=== PATIENT | male | born 1930 | race African-American/Black ===

== ENCOUNTER 2018-11-15 23:52 | Inpatient (IN) | payer MEDICARE ==
[~2018-11-15] VITALS: Ht 170.2 cm; Wt 66.7 kg
[2018-11-16 07:05] LABS: *COCAINE SCREEN URINE NEGATIVE (NEGATIVE); METHADONE URINE SCREEN NEGATIVE (NEGATIVE); OPIATES URINE SCREEN NEGATIVE (NEGATIVE)
[2018-11-16 07:06] LABS: *AMPHETAMINES SCREEN URINE NEGATIVE (NEGATIVE); *BARBITURATES SCREEN URINE NEGATIVE (NEGATIVE); *BENZODIAZEPINES SCREEN URINE NEGATIVE (NEGATIVE); CANNABINOID URINE SCREEN NEGATIVE (NEGATIVE); PHENCYCLIDINE URINE SCREEN NEGATIVE (NEGATIVE)
[2018-11-16 07:07] LABS: BASOPHILS % 0.5 % (0.0-2.0); EOSINOPHILS % 0.4 % (0.0-5.0); HEMOGLOBIN. 11.4 g/dL (14.0-18.0); LYMPHOCYTES % 11.6 % (20.0-50.0); MEAN CORPUSCULAR HEMOGLOBIN 31.4 pg (28.0-32.0); MEAN CORPUSCULAR VOLUME 93.8 fL (80.0-94.0); MEAN PLATELET VOLUME 9.3 fl (7.4-10.4); MONOCYTES % 6.1 % (2.0-8.0); NEUTROPHILS % 81.4 % (40.0-76.0); PLATELET 202 x1000/uL (130-400); RED BLOOD CELL COUNT 3.63 mill/uL (4.7-6.1); RED CELL DISTRIBUTION WIDTH 14.6 % (11.6-14.6)
[2018-11-16 07:16] LABS: CHLORIDE 111 mEq/L (98-107)
[2018-11-16] MEDS ORDERED: ASPIRIN 81MG TABLET PO ONE (09:30)
[2018-11-16] MEDS ORDERED: ONDANSETRON HCL 4MG/2ML INJ IV PRN (10:15)
[2018-11-16] MEDS ORDERED: GUAIFENESIN 200MG/10ML SUGAR FREE UDC PO PRN (10:15)
[2018-11-16] MEDS ORDERED: MAGNESIUM/ALUMINUM HYDROXIDE/SIMETHICONE 30ML UDC PO PRN (10:15)
[2018-11-16] MEDS ORDERED: ACETAMINOPHEN 325MG TABLET PO PRN (10:15)
[2018-11-16] MEDS ORDERED: IPRATROPIUM/ALBUTEROL 0.5-3(2.5)MG/3ML NEB INH PRN (10:15)
[2018-11-16] MEDS ORDERED: DOCUSATE SODIUM 100MG CAPSULE PO PRN (10:15)
[2018-11-16] MEDS ORDERED: NITROGLYCERIN 0.4MG TABLET SL SL PRN (10:15)
[2018-11-16 10:41] LABS: T4 FREE 0.84 ng/dL (0.76-1.46)
[2018-11-16 10:44] LABS: CLARITY URINE CLOUDY (CLEAR); KETONES URINE TRACE (NEGATIVE); LEUKOCYTE ESTERASE URINE NEGATIVE (NEGATIVE); NITRITE URINE NEGATIVE (NEGATIVE); OCCULT BLOOD URINE 3+ (NEGATIVE); PROTEIN URINE 2+ (NEGATIVE); SPECIFIC GRAVITY URINE 1.023 (1.005-1.030)
[2018-11-16 10:45] LABS: COLOR URINE YELLOW (YELLOW)
[2018-11-16 10:52] LABS: FOLIC ACID (FOLATE) SERUM 10.2 ng/mL (>5.38)
[2018-11-16 15:46] LABS: CREATINE KINASE MB FRACTION 52.9 ng/mL (0.5-3.6)
[2018-11-16] MEDS: FAMOTIDINE 20MG TABLET PO SCH (16:12)
[2018-11-16] MEDS: ENOXAPARIN 30MG/0.3ML SYR SUBCUT SCH (16:12)
[2018-11-16] MEDS ORDERED: TRAMADOL 50MG TABLET PO PRN (17:30)
[2018-11-16] MEDS ORDERED: ZOLPIDEM TARTRATE 5MG TABLET PO PRN (21:00)
[2018-11-16 22:53] VITALS: BP 163/64
[2018-11-16 22:58] VITALS: BP 163/64
[2018-11-17 00:03] LABS: CREATINE KINASE MB FRACTION 26.5 ng/mL (0.5-3.6)
[2018-11-17 00:50] VITALS: BP 147/62
[2018-11-17 04:00] VITALS: BP 153/74
[2018-11-17 06:53] LABS: BASOPHILS % 1.6 % (0.0-2.0); HEMATOCRIT. 33.3 % (42.0-52.0); HEMOGLOBIN. 11.4 g/dL (14.0-18.0); LYMPHOCYTES % 31.4 % (20.0-50.0); MEAN CORPUSCULAR HEMOGLOBIN 31.6 pg (28.0-32.0); MEAN CORPUSCULAR VOLUME 92.6 fL (80.0-94.0); MEAN PLATELET VOLUME 9.2 fl (7.4-10.4); MONOCYTES % 7.3 % (2.0-8.0); NEUTROPHILS % 55.7 % (40.0-76.0); PLATELET 186 x1000/uL (130-400); RED BLOOD CELL COUNT 3.59 mill/uL (4.7-6.1); RED CELL DISTRIBUTION WIDTH 14.6 % (11.6-14.6)
[2018-11-17] MEDS: SODIUM CHLORIDE 0.9% 1,000 ML IV SCH (07:32)
[2018-11-17 08:00] VITALS: BP 142/68
[2018-11-17 08:04] LABS: CHLORIDE 112 mEq/L (98-107)
[2018-11-17] MEDS: FAMOTIDINE 20MG TABLET PO SCH (08:59)
[2018-11-17] MEDS: ASPIRIN 325MG EC TABLET PO SCH (09:00)
[2018-11-17 12:00] VITALS: BP 139/50
[2018-11-17 15:35] LABS: CREATINE KINASE MB FRACTION 11.4 ng/mL (0.5-3.6)
[2018-11-17 16:00] VITALS: BP 149/62
[2018-11-17] MEDS: ENOXAPARIN 30MG/0.3ML SYR SUBCUT SCH (16:00)
[2018-11-17 20:00] VITALS: BP 154/66
[2018-11-18] VITALS: BP 154/66
[2018-11-18 04:00] VITALS: BP 144/73
[2018-11-18] MEDS: SODIUM CHLORIDE 0.9% 1,000 ML IV SCH ×2 (04:52→15:11)
[2018-11-18 08:00] VITALS: BP 160/84
[2018-11-18] MEDS: FAMOTIDINE 20MG TABLET PO SCH (09:19)
[2018-11-18] MEDS: CLONIDINE 0.1MG TABLET PO PRN ×2 (09:20→16:58)
[2018-11-18] MEDS: ASPIRIN 325MG EC TABLET PO SCH (09:20)
[2018-11-18 12:00] VITALS: BP 147/58
[2018-11-18] MEDS: ENOXAPARIN 30MG/0.3ML SYR SUBCUT SCH (15:10)
[2018-11-18 16:00] VITALS: BP 170/69
[2018-11-18] MEDS: FUROSEMIDE 20MG TABLET PO SCH (16:59)
[2018-11-18] MEDS: SPIRONOLACTONE 25MG TABLET PO SCH (16:59)
[2018-11-18 20:00] VITALS: BP 153/70
[2018-11-18] MEDS: CARVEDILOL 3.125 MG TABLET PO SCH (22:41)
[2018-11-18] MEDS: LISINOPRIL 20MG TABLET PO SCH (22:42)
[2018-11-19] MEDS: SODIUM CHLORIDE 0.9% 1,000 ML IV SCH ×3 (02:08→17:12)
[2018-11-19 04:00] VITALS: BP 174/70
[2018-11-19] MEDS: FUROSEMIDE 20MG TABLET PO SCH ×2 (06:22→17:09)
[2018-11-19] MEDS: SPIRONOLACTONE 25MG TABLET PO SCH ×2 (06:23→17:10)
[2018-11-19 08:00] VITALS: BP 179/91
[2018-11-19] MEDS: ASPIRIN 325MG EC TABLET PO SCH (09:17)
[2018-11-19] MEDS: FAMOTIDINE 20MG TABLET PO SCH (09:17)
[2018-11-19] MEDS: LISINOPRIL 20MG TABLET PO SCH ×2 (09:18→21:46)
[2018-11-19] MEDS: CARVEDILOL 3.125 MG TABLET PO SCH ×2 (09:18→21:46)
[2018-11-19 12:00] VITALS: BP 153/58
[2018-11-19] MEDS: ENOXAPARIN 30MG/0.3ML SYR SUBCUT SCH (14:43)
[2018-11-19 16:00] VITALS: BP 157/66
[2018-11-19 20:00] VITALS: BP 176/79
[2018-11-20] VITALS (7 sets, daily range): BP systolic 131–182; BP diastolic 54–83
[2018-11-20] MEDS: SODIUM CHLORIDE 0.9% 1,000 ML IV SCH ×2 (02:56→14:46)
[2018-11-20] MEDS: FUROSEMIDE 20MG TABLET PO SCH ×2 (06:50→17:15)
[2018-11-20] MEDS: SPIRONOLACTONE 25MG TABLET PO SCH ×2 (06:51→17:56)
[2018-11-20] MEDS: ASPIRIN 325MG EC TABLET PO SCH (09:29)
[2018-11-20] MEDS: FAMOTIDINE 20MG TABLET PO SCH (09:30)
[2018-11-20] MEDS: CARVEDILOL 3.125 MG TABLET PO SCH ×2 (09:30→20:18)
[2018-11-20] MEDS: LISINOPRIL 20MG TABLET PO SCH ×2 (09:30→20:18)
[2018-11-20] MEDS: ENOXAPARIN 30MG/0.3ML SYR SUBCUT SCH (14:46)
== END 2018-11-20 21:52 | disposition short-term general hospital (02) | DRG 683 ==
LOC: ER 23:52 → 5WST 11-16 08:14 → UNDOADMIN 11-16 08:18 → 5WST 11-16 08:18 → SUPCPDRO 11-16 10:15 → ENRESERV 11-16 20:23
PROVIDERS: ADMIT Internal Medicine; ATTEND Internal Medicine
DX: N17.0 Acute kidney failure with tubular necrosis (principal); M62.82 Rhabdomyolysis; E87.0 Hyperosmolality and hypernatremia; R55 Syncope and collapse; I10 Essential (primary) hypertension; D64.9 Anemia, unspecified; R26.9 Unspecified abnormalities of gait and mobility; I08.2 Rheumatic disorders of both aortic and tricuspid valves; G54.6 Phantom limb syndrome with pain; H54.61 Unqualified visual loss, right eye, normal vision left eye; Z86.73 Personal history of transient ischemic attack (TIA), and cerebral infarction without residual deficits; Z89.512 Acquired absence of left leg below knee; Z89.612 Acquired absence of left leg above knee; Z97.0 Presence of artificial eye
CPT/HCPCS: 36415; 71045; 73030; 80061; 80305; 82550; 82553; 82607; 82746; 83036; 83540; 83550; 83605; 84439; 84443; 84484; 93005; 93306; 93970; 96372; 97116; 97162; 97166; 97530; 97535; 99284; 99285; J1650; J2405

== ENCOUNTER 2018-11-20 21:55 | Inpatient (IN) | payer MEDICARE, OTHER ==
[~2018-11-20] VITALS: Ht 170.2 cm; Wt 66.3 kg
[2018-11-20 22:00] VITALS: BP 126/63
[2018-11-20] MEDS ORDERED: CLONIDINE 0.1MG TABLET PO PRN (23:00)
[2018-11-20] MEDS ORDERED: ZOLPIDEM TARTRATE 5MG TABLET PO PRN (23:00)
[2018-11-20] MEDS ORDERED: ONDANSETRON HCL 4MG/2ML INJ IV PRN (23:00)
[2018-11-20] MEDS ORDERED: GUAIFENESIN-DM 200MG-20MG/10ML UDC PO PRN (23:00)
[2018-11-20] MEDS ORDERED: ACETAMINOPHEN 650MG/20.3ML UDC PO PRN (23:00)
[2018-11-20] MEDS ORDERED: TRAMADOL 50MG TABLET PO PRN (23:00)
[2018-11-20] MEDS ORDERED: NITROGLYCERIN 0.4MG TABLET SL SL PRN (23:00)
[2018-11-20] MEDS ORDERED: MAGNESIUM/ALUMINUM HYDROXIDE/SIMETHICONE 30ML UDC PO PRN (23:00)
[2018-11-20] MEDS ORDERED: DOCUSATE SODIUM 100MG CAPSULE PO PRN (23:00)
[2018-11-20] MEDS ORDERED: IPRATROPIUM/ALBUTEROL 0.5-3(2.5)MG/3ML NEB HHN PRN (23:00)
[2018-11-21 02:46] VITALS: BP 126/63
[2018-11-21] MEDS: SODIUM CHLORIDE 0.9% 1,000 ML IV SCH ×2 (06:47→23:51)
[2018-11-21 07:50] LABS: BASOPHILS % 1.6 % (0.0-2.0); EOSINOPHILS % 4.7 % (0.0-5.0); HEMATOCRIT. 34.4 % (42.0-52.0); HEMOGLOBIN. 11.8 g/dL (14.0-18.0); LYMPHOCYTES % 38.8 % (20.0-50.0); MEAN CORPUSCULAR HEMOGLOBIN 31.6 pg (28.0-32.0); MEAN PLATELET VOLUME 9.4 fl (7.4-10.4); MONOCYTES % 9.7 % (2.0-8.0); NEUTROPHILS % 45.2 % (40.0-76.0); PLATELET 200 x1000/uL (130-400); RED BLOOD CELL COUNT 3.74 mill/uL (4.7-6.1); RED CELL DISTRIBUTION WIDTH 14.3 % (11.6-14.6)
[2018-11-21 07:57] LABS: CHLORIDE 111 mEq/L (98-107)
[2018-11-21 08:45] VITALS: BP 145/76
[2018-11-21] MEDS ORDERED: ENOXAPARIN 30MG/0.3ML SYR SUBCUT SCH (09:00)
[2018-11-21] MEDS: SPIRONOLACTONE 25MG TABLET PO SCH ×2 (09:35→09:42)
[2018-11-21] MEDS: FAMOTIDINE 20MG TABLET PO SCH (09:35)
[2018-11-21] MEDS: ASPIRIN 325MG EC TABLET PO SCH (09:35)
[2018-11-21] MEDS: FUROSEMIDE 20MG TABLET PO SCH ×2 (09:36→09:42)
[2018-11-21] MEDS: LISINOPRIL 10MG TABLET PO SCH ×2 (09:36→21:32)
[2018-11-21] MEDS: CARVEDILOL 3.125 MG TABLET PO SCH ×2 (09:36→21:32)
[2018-11-21] MEDS ORDERED: LACTULOSE 20G/30ML UDC PO PRN (13:45)
[2018-11-21] MEDS: BISACODYL 5MG TABLET PO PRN (17:21)
[2018-11-21 20:00] VITALS: BP 197/77
[2018-11-21 21:00] VITALS: BP 180/68
[2018-11-21 23:00] VITALS: BP 155/67
[2018-11-22] MEDS: LEVOTHYROXINE SODIUM 25MCG TABLET PO SCH (06:18)
[2018-11-22 08:00] VITALS: BP 105/83
[2018-11-22] MEDS: FAMOTIDINE 20MG TABLET PO SCH (09:55)
[2018-11-22] MEDS: ASPIRIN 325MG EC TABLET PO SCH (09:55)
[2018-11-22] MEDS: CARVEDILOL 3.125 MG TABLET PO SCH ×2 (09:56→22:55)
[2018-11-22] MEDS: SPIRONOLACTONE 25MG TABLET PO SCH ×2 (09:56→21:19)
[2018-11-22] MEDS: FUROSEMIDE 20MG TABLET PO SCH ×2 (09:56→21:19)
[2018-11-22] MEDS: LISINOPRIL 10MG TABLET PO SCH ×2 (09:57→21:25)
[2018-11-22] MEDS: ENOXAPARIN 40MG/0.4ML SYR SUBCUT SCH (09:58)
[2018-11-22 20:00] VITALS: BP 165/57
[2018-11-22] MEDS: SODIUM CHLORIDE 0.9% 1,000 ML IV SCH (21:33)
[2018-11-23] MEDS: LEVOTHYROXINE SODIUM 25MCG TABLET PO SCH (06:15)
[2018-11-23 07:22] LABS: EOSINOPHILS % 3.7 % (0.0-5.0); HEMATOCRIT. 34.2 % (42.0-52.0); HEMOGLOBIN. 11.5 g/dL (14.0-18.0); LYMPHOCYTES % 39.1 % (20.0-50.0); MEAN CORPUSCULAR HEMOGLOBIN 31.1 pg (28.0-32.0); MEAN CORPUSCULAR VOLUME 92.7 fL (80.0-94.0); MEAN PLATELET VOLUME 9.5 fl (7.4-10.4); MONOCYTES % 9.2 % (2.0-8.0); PLATELET 205 x1000/uL (130-400); RED BLOOD CELL COUNT 3.69 mill/uL (4.7-6.1); RED CELL DISTRIBUTION WIDTH 14.4 % (11.6-14.6)
[2018-11-23 07:48] LABS: CHLORIDE 111 mEq/L (98-107)
[2018-11-23 08:00] VITALS: BP 102/66
[2018-11-23 08:01] LABS: TOTAL IRON BINDING CAPACITY 243 ug/dL (250-450)
[2018-11-23 08:09] LABS: FOLIC ACID (FOLATE) SERUM 12.8 ng/mL (>5.38)
[2018-11-23] MEDS: LISINOPRIL 10MG TABLET PO SCH ×2 (09:00→21:00)
[2018-11-23] MEDS: CARVEDILOL 3.125 MG TABLET PO SCH ×2 (09:00→21:00)
[2018-11-23 09:41] LABS: PROSTRATE SPECIFIC AG TOTAL 1.13 ng/mL (0.0-4.0)
[2018-11-23] MEDS: ASPIRIN 325MG EC TABLET PO SCH (09:59)
[2018-11-23] MEDS: FAMOTIDINE 20MG TABLET PO SCH ×2 (09:59→17:56)
[2018-11-23] MEDS: FUROSEMIDE 20MG TABLET PO SCH ×2 (10:00→21:59)
[2018-11-23] MEDS: SPIRONOLACTONE 25MG TABLET PO SCH ×2 (10:00→21:00)
[2018-11-23] MEDS: ENOXAPARIN 40MG/0.4ML SYR SUBCUT SCH (10:01)
[2018-11-23] MEDS: SODIUM CHLORIDE 0.9% 1,000 ML IV SCH ×2 (10:02→22:03)
[2018-11-23] MEDS ORDERED: MAGNESIUM/ALUMINUM HYDROXIDE/SIMETHICONE 30ML UDC PO NR (11:45)
[2018-11-23] MEDS ORDERED: POTASSIUM CHLORIDE 20MEQ TABLET SR PO NR (12:30)
[2018-11-23 13:42] LABS: CREATINE KINASE MB FRACTION 3.8 ng/mL (0.5-3.6)
[2018-11-23 20:00] VITALS: BP 110/71
[2018-11-24 06:19] LABS: CHLORIDE 110 mEq/L (98-107)
[2018-11-24] MEDS: LEVOTHYROXINE SODIUM 50MCG TABLET PO SCH (06:26)
[2018-11-24] MEDS: PANTOPRAZOLE 40MG DR TABLET PO SCH (06:26)
[2018-11-24] MEDS: SODIUM CHLORIDE 0.9% 1,000 ML IV SCH (06:41)
[2018-11-24 06:44] LABS: EOSINOPHILS % 3.8 % (0.0-5.0); HEMATOCRIT. 34.8 % (42.0-52.0); HEMOGLOBIN. 11.8 g/dL (14.0-18.0); LYMPHOCYTES % 38.5 % (20.0-50.0); MEAN CORPUSCULAR HEMOGLOBIN 31.5 pg (28.0-32.0); MEAN CORPUSCULAR VOLUME 92.7 fL (80.0-94.0); MEAN PLATELET VOLUME 9.4 fl (7.4-10.4); MONOCYTES % 10.1 % (2.0-8.0); NEUTROPHILS % 45.6 % (40.0-76.0); PLATELET 225 x1000/uL (130-400); RED BLOOD CELL COUNT 3.75 mill/uL (4.7-6.1); RED CELL DISTRIBUTION WIDTH 14.3 % (11.6-14.6)
[2018-11-24 08:00] VITALS: BP 103/67
[2018-11-24] MEDS: FAMOTIDINE 20MG TABLET PO SCH (09:37)
[2018-11-24] MEDS: LISINOPRIL 10MG TABLET PO SCH ×2 (09:37→21:00)
[2018-11-24] MEDS: ASPIRIN 325MG EC TABLET PO SCH (09:37)
[2018-11-24] MEDS: CARVEDILOL 3.125 MG TABLET PO SCH ×2 (09:38→21:38)
[2018-11-24] MEDS: SPIRONOLACTONE 25MG TABLET PO SCH ×2 (09:38→21:38)
[2018-11-24] MEDS: FUROSEMIDE 20MG TABLET PO SCH ×2 (09:38→21:38)
[2018-11-24] MEDS: ENOXAPARIN 40MG/0.4ML SYR SUBCUT SCH (09:38)
[2018-11-24] MEDS ORDERED: ONDANSETRON 4MG ODT PO PRN (11:00)
[2018-11-24 20:00] VITALS: BP 189/61
[2018-11-25] MEDS: PANTOPRAZOLE 40MG DR TABLET PO SCH (06:43)
[2018-11-25] MEDS: LEVOTHYROXINE SODIUM 50MCG TABLET PO SCH (06:43)
[2018-11-25 08:05] VITALS: BP 115/75
[2018-11-25] MEDS: FUROSEMIDE 20MG TABLET PO SCH ×2 (09:42→22:16)
[2018-11-25] MEDS: ASPIRIN 325MG EC TABLET PO SCH (09:42)
[2018-11-25] MEDS: LISINOPRIL 10MG TABLET PO SCH ×2 (09:42→21:00)
[2018-11-25] MEDS: SPIRONOLACTONE 25MG TABLET PO SCH ×2 (09:42→22:17)
[2018-11-25] MEDS: CARVEDILOL 3.125 MG TABLET PO SCH ×2 (09:43→21:00)
[2018-11-25] MEDS: ENOXAPARIN 40MG/0.4ML SYR SUBCUT SCH (09:43)
[2018-11-25] MEDS ORDERED: PANTOPRAZOLE 40MG DR TABLET PO SCH (14:30)
[2018-11-25 20:00] VITALS: BP 122/59
[2018-11-26] MEDS: PANTOPRAZOLE 40MG DR TABLET PO SCH (06:11)
[2018-11-26] MEDS: LEVOTHYROXINE SODIUM 50MCG TABLET PO SCH (06:11)
[2018-11-26 07:00] LABS: BASOPHILS % 1.5 % (0.0-2.0); EOSINOPHILS % 4.3 % (0.0-5.0); HEMATOCRIT. 37.2 % (42.0-52.0); HEMOGLOBIN. 12.5 g/dL (14.0-18.0); MEAN CORPUSCULAR HEMOGLOBIN 31.2 pg (28.0-32.0); MEAN CORPUSCULAR VOLUME 92.7 fL (80.0-94.0); MONOCYTES % 9.1 % (2.0-8.0); NEUTROPHILS % 48.1 % (40.0-76.0); PLATELET 260 x1000/uL (130-400); RED BLOOD CELL COUNT 4.01 mill/uL (4.7-6.1); RED CELL DISTRIBUTION WIDTH 14.5 % (11.6-14.6)
[2018-11-26 07:47] LABS: CHLORIDE 107 mEq/L (98-107)
[2018-11-26 07:53] VITALS: BP 150/68
[2018-11-26 08:10] LABS: CREATINE KINASE 601 IU/L (39-308)
[2018-11-26] MEDS: ENOXAPARIN 40MG/0.4ML SYR SUBCUT SCH (10:20)
[2018-11-26] MEDS: FUROSEMIDE 20MG TABLET PO SCH ×2 (10:20→22:15)
[2018-11-26] MEDS: CARVEDILOL 3.125 MG TABLET PO SCH ×2 (10:22→22:14)
[2018-11-26] MEDS: BISACODYL 5MG TABLET PO PRN (10:22)
[2018-11-26] MEDS: ASPIRIN 325MG EC TABLET PO SCH (10:23)
[2018-11-26] MEDS: SPIRONOLACTONE 25MG TABLET PO SCH ×2 (10:23→22:14)
[2018-11-26] MEDS: LISINOPRIL 10MG TABLET PO SCH ×2 (10:23→21:00)
[2018-11-26] MEDS: LACTULOSE 20G/30ML UDC PO SCH ×3 (16:49→21:00)
[2018-11-26] MEDS: DOCUSATE SODIUM 100MG CAPSULE PO SCH (16:49)
[2018-11-26 20:00] VITALS: BP 141/64
[2018-11-26] MEDS: POLYETHYLENE GLYCOL 3350 (17GM) 1 DOSE PACK PO SCH (21:00)
[2018-11-27] MEDS: PANTOPRAZOLE 40MG DR TABLET PO SCH (06:12)
[2018-11-27] MEDS: LEVOTHYROXINE SODIUM 50MCG TABLET PO SCH (06:12)
[2018-11-27 08:10] VITALS: BP 130/60
[2018-11-27] MEDS: CARVEDILOL 3.125 MG TABLET PO SCH ×2 (09:19→21:28)
[2018-11-27] MEDS: ASPIRIN 325MG EC TABLET PO SCH (09:20)
[2018-11-27] MEDS: LISINOPRIL 10MG TABLET PO SCH ×2 (09:20→21:27)
[2018-11-27] MEDS: DOCUSATE SODIUM 100MG CAPSULE PO SCH ×2 (09:20→17:00)
[2018-11-27] MEDS: FUROSEMIDE 20MG TABLET PO SCH ×2 (09:20→21:27)
[2018-11-27] MEDS: SPIRONOLACTONE 25MG TABLET PO SCH ×2 (09:20→21:27)
[2018-11-27] MEDS: ENOXAPARIN 40MG/0.4ML SYR SUBCUT SCH (09:21)
[2018-11-27 15:07] LABS: 25-HYDROXY VITAMIN D3 14 ng/mL (.)
[2018-11-27 20:00] VITALS: BP 131/52
[2018-11-27] MEDS: POLYETHYLENE GLYCOL 3350 (17GM) 1 DOSE PACK PO SCH (21:28)
[2018-11-28 06:05] LABS: BASOPHILS % 1.5 % (0.0-2.0); EOSINOPHILS % 2.9 % (0.0-5.0); HEMATOCRIT. 34.9 % (42.0-52.0); HEMOGLOBIN. 11.7 g/dL (14.0-18.0); LYMPHOCYTES % 37.8 % (20.0-50.0); MEAN CORPUSCULAR HEMOGLOBIN 31.1 pg (28.0-32.0); MEAN CORPUSCULAR VOLUME 93.2 fL (80.0-94.0); MEAN PLATELET VOLUME 9.1 fl (7.4-10.4); MONOCYTES % 8.8 % (2.0-8.0); PLATELET 255 x1000/uL (130-400); RED BLOOD CELL COUNT 3.75 mill/uL (4.7-6.1); RED CELL DISTRIBUTION WIDTH 14.6 % (11.6-14.6)
[2018-11-28] MEDS: LEVOTHYROXINE SODIUM 50MCG TABLET PO SCH (06:21)
[2018-11-28 06:43] LABS: CHLORIDE 107 mEq/L (98-107)
[2018-11-28 06:51] LABS: CREATINE KINASE 493 IU/L (39-308)
[2018-11-28 08:12] VITALS: BP 135/47
[2018-11-28] MEDS: ASPIRIN 325MG EC TABLET PO SCH (08:29)
[2018-11-28] MEDS: SPIRONOLACTONE 25MG TABLET PO SCH ×2 (08:30→21:45)
[2018-11-28] MEDS: CARVEDILOL 3.125 MG TABLET PO SCH ×2 (08:30→21:44)
[2018-11-28] MEDS: FAMOTIDINE 20MG TABLET PO SCH (08:30)
[2018-11-28] MEDS: DOCUSATE SODIUM 100MG CAPSULE PO SCH ×2 (08:30→16:04)
[2018-11-28] MEDS: ENOXAPARIN 40MG/0.4ML SYR SUBCUT SCH (08:31)
[2018-11-28] MEDS: FUROSEMIDE 20MG TABLET PO SCH ×2 (08:31→21:46)
[2018-11-28] MEDS: LISINOPRIL 10MG TABLET PO SCH ×2 (08:31→21:45)
[2018-11-28 20:00] VITALS: BP 129/42
[2018-11-28] MEDS: POLYETHYLENE GLYCOL 3350 (17GM) 1 DOSE PACK PO SCH (21:46)
[2018-11-29] MEDS: LEVOTHYROXINE SODIUM 50MCG TABLET PO SCH (06:17)
[2018-11-29 08:03] VITALS: BP 142/54
[2018-11-29] MEDS: DOCUSATE SODIUM 100MG CAPSULE PO SCH ×2 (08:06→17:02)
[2018-11-29] MEDS: ASPIRIN 325MG EC TABLET PO SCH (08:06)
[2018-11-29] MEDS: ENOXAPARIN 30MG/0.3ML SYR SUBCUT SCH (08:06)
[2018-11-29] MEDS: LISINOPRIL 10MG TABLET PO SCH ×2 (08:06→21:20)
[2018-11-29] MEDS: FUROSEMIDE 20MG TABLET PO SCH ×2 (08:07→21:20)
[2018-11-29] MEDS: SPIRONOLACTONE 25MG TABLET PO SCH ×2 (08:07→21:20)
[2018-11-29] MEDS: CARVEDILOL 3.125 MG TABLET PO SCH ×2 (08:08→21:20)
[2018-11-29] MEDS: FAMOTIDINE 20MG TABLET PO SCH (08:11)
[2018-11-29 20:00] VITALS: BP 155/55
[2018-11-29] MEDS: POLYETHYLENE GLYCOL 3350 (17GM) 1 DOSE PACK PO SCH (21:19)
[2018-11-30] MEDS: LEVOTHYROXINE SODIUM 50MCG TABLET PO SCH (06:17)
[2018-11-30 08:25] VITALS: BP 131/42
[2018-11-30] MEDS: LISINOPRIL 10MG TABLET PO SCH ×2 (08:55→21:35)
[2018-11-30] MEDS: ASPIRIN 325MG EC TABLET PO SCH (08:55)
[2018-11-30] MEDS: FUROSEMIDE 20MG TABLET PO SCH ×2 (08:55→21:35)
[2018-11-30] MEDS: FAMOTIDINE 20MG TABLET PO SCH (08:56)
[2018-11-30] MEDS: SPIRONOLACTONE 25MG TABLET PO SCH ×2 (08:56→21:35)
[2018-11-30] MEDS: CARVEDILOL 3.125 MG TABLET PO SCH ×2 (08:56→21:35)
[2018-11-30] MEDS: DOCUSATE SODIUM 100MG CAPSULE PO SCH ×2 (08:56→17:11)
[2018-11-30] MEDS: ENOXAPARIN 30MG/0.3ML SYR SUBCUT SCH (08:57)
[2018-11-30 20:00] VITALS: BP 98/51
[2018-11-30] MEDS: POLYETHYLENE GLYCOL 3350 (17GM) 1 DOSE PACK PO SCH (21:35)
[2018-12-01] MEDS: LEVOTHYROXINE SODIUM 50MCG TABLET PO SCH (06:00)
[2018-12-01 06:49] LABS: CHLORIDE 107 mEq/L (98-107)
[2018-12-01 06:59] LABS: CREATINE KINASE 535 IU/L (39-308)
[2018-12-01 07:05] LABS: BASOPHILS % 1.2 % (0.0-2.0); EOSINOPHILS % 2.5 % (0.0-5.0); HEMATOCRIT. 37.1 % (42.0-52.0); HEMOGLOBIN. 12.5 g/dL (14.0-18.0); LYMPHOCYTES % 40.8 % (20.0-50.0); MEAN CORPUSCULAR HEMOGLOBIN 31.2 pg (28.0-32.0); MEAN CORPUSCULAR VOLUME 92.7 fL (80.0-94.0); MEAN PLATELET VOLUME 9.7 fl (7.4-10.4); MONOCYTES % 9.1 % (2.0-8.0); NEUTROPHILS % 46.4 % (40.0-76.0); PLATELET 278 x1000/uL (130-400); RED CELL DISTRIBUTION WIDTH 14.1 % (11.6-14.6)
[2018-12-01 08:00] VITALS: BP 101/62
[2018-12-01] MEDS: LISINOPRIL 10MG TABLET PO SCH (09:00)
[2018-12-01] MEDS: CARVEDILOL 3.125 MG TABLET PO SCH ×2 (09:00→21:19)
[2018-12-01] MEDS: ENOXAPARIN 30MG/0.3ML SYR SUBCUT SCH (09:14)
[2018-12-01] MEDS: ASPIRIN 325MG EC TABLET PO SCH (09:14)
[2018-12-01] MEDS: DOCUSATE SODIUM 100MG CAPSULE PO SCH ×2 (09:14→16:39)
[2018-12-01] MEDS: SPIRONOLACTONE 25MG TABLET PO SCH (09:14)
[2018-12-01] MEDS: FUROSEMIDE 20MG TABLET PO SCH (09:14)
[2018-12-01] MEDS: FAMOTIDINE 20MG TABLET PO SCH (09:14)
[2018-12-01 20:00] VITALS: BP 152/61
[2018-12-01] MEDS: POLYETHYLENE GLYCOL 3350 (17GM) 1 DOSE PACK PO SCH (21:18)
[2018-12-02] MEDS: LEVOTHYROXINE SODIUM 50MCG TABLET PO SCH (07:15)
[2018-12-02 07:18] LABS: BASOPHILS % 1.8 % (0.0-2.0); EOSINOPHILS % 2.5 % (0.0-5.0); HEMOGLOBIN. 12.1 g/dL (14.0-18.0); LYMPHOCYTES % 38.9 % (20.0-50.0); MEAN CORPUSCULAR HEMOGLOBIN 31.3 pg (28.0-32.0); MEAN CORPUSCULAR VOLUME 93.2 fL (80.0-94.0); MEAN PLATELET VOLUME 9.3 fl (7.4-10.4); MONOCYTES % 9.7 % (2.0-8.0); NEUTROPHILS % 47.1 % (40.0-76.0); PLATELET 280 x1000/uL (130-400); RED BLOOD CELL COUNT 3.86 mill/uL (4.7-6.1); RED CELL DISTRIBUTION WIDTH 14.4 % (11.6-14.6)
[2018-12-02 08:00] VITALS: BP 143/44
[2018-12-02] MEDS ORDERED: SPIRONOLACTONE 25MG TABLET PO SCH (09:00)
[2018-12-02] MEDS ORDERED: LISINOPRIL 10MG TABLET PO SCH (09:00)
[2018-12-02] MEDS: DOCUSATE SODIUM 100MG CAPSULE PO SCH ×2 (09:22→16:10)
[2018-12-02] MEDS: ASPIRIN 325MG EC TABLET PO SCH (09:22)
[2018-12-02] MEDS: FAMOTIDINE 20MG TABLET PO SCH (09:22)
[2018-12-02] MEDS: ENOXAPARIN 30MG/0.3ML SYR SUBCUT SCH (09:22)
[2018-12-02] MEDS: CARVEDILOL 3.125 MG TABLET PO SCH ×2 (09:24→20:56)
[2018-12-02] MEDS: SODIUM CHLORIDE 0.45% 1,000 ML IV SCH (11:25)
[2018-12-02 20:00] VITALS: BP 139/37
[2018-12-02] MEDS: POLYETHYLENE GLYCOL 3350 (17GM) 1 DOSE PACK PO SCH (20:55)
[2018-12-03] MEDS: LEVOTHYROXINE SODIUM 50MCG TABLET PO SCH (06:38)
[2018-12-03] MEDS: SODIUM CHLORIDE 0.45% 1,000 ML IV SCH (06:38)
[2018-12-03 06:42] LABS: EOSINOPHILS % 2.5 % (0.0-5.0); HEMATOCRIT. 36.4 % (42.0-52.0); HEMOGLOBIN. 12.2 g/dL (14.0-18.0); LYMPHOCYTES % 43.5 % (20.0-50.0); MEAN CORPUSCULAR HEMOGLOBIN 31.2 pg (28.0-32.0); MEAN CORPUSCULAR VOLUME 93.1 fL (80.0-94.0); MEAN PLATELET VOLUME 9.2 fl (7.4-10.4); MONOCYTES % 8.8 % (2.0-8.0); NEUTROPHILS % 43.2 % (40.0-76.0); PLATELET 294 x1000/uL (130-400); RED BLOOD CELL COUNT 3.92 mill/uL (4.7-6.1); RED CELL DISTRIBUTION WIDTH 14.6 % (11.6-14.6)
[2018-12-03 08:08] VITALS: BP 149/51
[2018-12-03] MEDS: ENOXAPARIN 30MG/0.3ML SYR SUBCUT SCH (09:18)
[2018-12-03] MEDS: FAMOTIDINE 20MG TABLET PO SCH (09:18)
[2018-12-03] MEDS: CARVEDILOL 3.125 MG TABLET PO SCH ×2 (09:18→21:23)
[2018-12-03] MEDS: DOCUSATE SODIUM 100MG CAPSULE PO SCH ×2 (09:18→17:14)
[2018-12-03] MEDS: ASPIRIN 325MG EC TABLET PO SCH (09:18)
[2018-12-03 20:00] VITALS: BP 147/42
[2018-12-03] MEDS: POLYETHYLENE GLYCOL 3350 (17GM) 1 DOSE PACK PO SCH (21:23)
[2018-12-04] MEDS: LEVOTHYROXINE SODIUM 50MCG TABLET PO SCH (06:46)
[2018-12-04 07:35] LABS: BASOPHILS % 2.5 % (0.0-2.0); EOSINOPHILS % 2.7 % (0.0-5.0); HEMATOCRIT. 34.8 % (42.0-52.0); HEMOGLOBIN. 11.6 g/dL (14.0-18.0); MEAN CORPUSCULAR HEMOGLOBIN 31.3 pg (28.0-32.0); MEAN CORPUSCULAR VOLUME 93.7 fL (80.0-94.0); MEAN PLATELET VOLUME 9.6 fl (7.4-10.4); NEUTROPHILS % 42.8 % (40.0-76.0); PLATELET 255 x1000/uL (130-400); RED BLOOD CELL COUNT 3.71 mill/uL (4.7-6.1); RED CELL DISTRIBUTION WIDTH 14.7 % (11.6-14.6)
[2018-12-04 08:00] VITALS: BP 131/41
[2018-12-04 08:16] LABS: CHLORIDE 110 mEq/L (98-107)
[2018-12-04] MEDS: CARVEDILOL 3.125 MG TABLET PO SCH ×2 (08:54→21:13)
[2018-12-04] MEDS: ENOXAPARIN 30MG/0.3ML SYR SUBCUT SCH (08:55)
[2018-12-04] MEDS: ASPIRIN 325MG EC TABLET PO SCH (08:55)
[2018-12-04] MEDS: DOCUSATE SODIUM 100MG CAPSULE PO SCH ×2 (08:55→17:51)
[2018-12-04] MEDS: FAMOTIDINE 20MG TABLET PO SCH (08:55)
[2018-12-04] MEDS ORDERED: ENOXAPARIN 40MG/0.4ML SYR SUBCUT SCH (17:03)
[2018-12-04 20:00] VITALS: BP 160/54
[2018-12-04] MEDS: POLYETHYLENE GLYCOL 3350 (17GM) 1 DOSE PACK PO SCH (21:13)
[2018-12-05] MEDS: LEVOTHYROXINE SODIUM 50MCG TABLET PO SCH (06:07)
[2018-12-05 07:10] LABS: BASOPHILS % 1.2 % (0.0-2.0); HEMATOCRIT. 37.2 % (42.0-52.0); HEMOGLOBIN. 12.4 g/dL (14.0-18.0); LYMPHOCYTES % 43.5 % (20.0-50.0); MEAN CORPUSCULAR HEMOGLOBIN 31.2 pg (28.0-32.0); MEAN CORPUSCULAR VOLUME 93.6 fL (80.0-94.0); MEAN PLATELET VOLUME 9.9 fl (7.4-10.4); MONOCYTES % 9.4 % (2.0-8.0); NEUTROPHILS % 42.9 % (40.0-76.0); PLATELET 270 x1000/uL (130-400); RED BLOOD CELL COUNT 3.97 mill/uL (4.7-6.1); RED CELL DISTRIBUTION WIDTH 14.5 % (11.6-14.6)
[2018-12-05 08:15] LABS: CHLORIDE 109 mEq/L (98-107)
[2018-12-05 08:18] VITALS: BP 125/54
[2018-12-05 08:28] LABS: CREATINE KINASE 444 IU/L (39-308)
[2018-12-05] MEDS: CARVEDILOL 3.125 MG TABLET PO SCH ×2 (09:00→21:49)
[2018-12-05] MEDS: FAMOTIDINE 20MG TABLET PO SCH (09:33)
[2018-12-05] MEDS: DOCUSATE SODIUM 100MG CAPSULE PO SCH ×2 (09:33→17:03)
[2018-12-05] MEDS: ASPIRIN 325MG EC TABLET PO SCH (09:33)
[2018-12-05] MEDS: ENOXAPARIN 40MG/0.4ML SYR SUBCUT SCH (09:34)
[2018-12-05] MEDS: HYDROCORTISONE 1% CREAM 30GM TOP SCH ×2 (17:00→17:05)
[2018-12-05 20:00] VITALS: BP 145/62
[2018-12-05] MEDS: POLYETHYLENE GLYCOL 3350 (17GM) 1 DOSE PACK PO SCH (21:48)
[2018-12-06] MEDS: LEVOTHYROXINE SODIUM 50MCG TABLET PO SCH (06:52)
[2018-12-06 08:00] VITALS: BP 111/46
[2018-12-06] MEDS: DOCUSATE SODIUM 100MG CAPSULE PO SCH ×2 (08:48→17:03)
[2018-12-06] MEDS: FAMOTIDINE 20MG TABLET PO SCH (08:48)
[2018-12-06] MEDS: ASPIRIN 325MG EC TABLET PO SCH (08:48)
[2018-12-06] MEDS: CARVEDILOL 3.125 MG TABLET PO SCH ×2 (08:49→21:20)
[2018-12-06] MEDS: ENOXAPARIN 40MG/0.4ML SYR SUBCUT SCH (08:49)
[2018-12-06] MEDS: HYDROCORTISONE 1% CREAM 30GM TOP SCH ×3 (09:00→17:03)
[2018-12-06 12:56] LABS: CREATINE KINASE 364 IU/L (39-308)
[2018-12-06 20:00] VITALS: BP 139/54
[2018-12-06] MEDS: POLYETHYLENE GLYCOL 3350 (17GM) 1 DOSE PACK PO SCH (21:20)
[2018-12-07] MEDS: LEVOTHYROXINE SODIUM 50MCG TABLET PO SCH (06:14)
[2018-12-07 06:55] LABS: BASOPHILS % 1.1 % (0.0-2.0); EOSINOPHILS % 2.5 % (0.0-5.0); LYMPHOCYTES % 44.8 % (20.0-50.0); MEAN CORPUSCULAR HEMOGLOBIN 31.2 pg (28.0-32.0); MEAN CORPUSCULAR VOLUME 93.2 fL (80.0-94.0); MEAN PLATELET VOLUME 9.7 fl (7.4-10.4); MONOCYTES % 9.5 % (2.0-8.0); NEUTROPHILS % 42.1 % (40.0-76.0); PLATELET 257 x1000/uL (130-400); RED BLOOD CELL COUNT 3.53 mill/uL (4.7-6.1); RED CELL DISTRIBUTION WIDTH 14.3 % (11.6-14.6)
[2018-12-07 07:03] LABS: CHLORIDE 108 mEq/L (98-107)
[2018-12-07 08:00] VITALS: BP 115/50
[2018-12-07] MEDS: CARVEDILOL 3.125 MG TABLET PO SCH ×2 (09:00→20:50)
[2018-12-07] MEDS: ENOXAPARIN 40MG/0.4ML SYR SUBCUT SCH (09:18)
[2018-12-07] MEDS: HYDROCORTISONE 1% CREAM 30GM TOP SCH ×3 (09:19→17:41)
[2018-12-07] MEDS: ASPIRIN 325MG EC TABLET PO SCH (09:19)
[2018-12-07] MEDS: DOCUSATE SODIUM 100MG CAPSULE PO SCH ×2 (09:19→17:40)
[2018-12-07] MEDS: FAMOTIDINE 20MG TABLET PO SCH (09:19)
[2018-12-07 20:00] VITALS: BP 138/51
[2018-12-07] MEDS: POLYETHYLENE GLYCOL 3350 (17GM) 1 DOSE PACK PO SCH (20:50)
[2018-12-08] MEDS: LEVOTHYROXINE SODIUM 50MCG TABLET PO SCH (06:01)
[2018-12-08] MEDS: DOCUSATE SODIUM 100MG CAPSULE PO SCH (08:29)
[2018-12-08] MEDS: ENOXAPARIN 40MG/0.4ML SYR SUBCUT SCH (08:29)
[2018-12-08] MEDS: FAMOTIDINE 20MG TABLET PO SCH (08:29)
[2018-12-08] MEDS: ASPIRIN 325MG EC TABLET PO SCH (08:29)
[2018-12-08 08:30] VITALS: BP 141/60
[2018-12-08] MEDS: CARVEDILOL 3.125 MG TABLET PO SCH (08:32)
[2018-12-08 10:38] VITALS: BP 115/56
[2018-12-08] MEDS: HYDROCORTISONE 1% CREAM 30GM TOP SCH ×2 (10:55→13:53)
== END 2018-12-08 16:15 | disposition home health service (06) | DRG 557 ==
PROVIDERS: ADMIT Physical Medicine & Rehabilitation Spinal Cord Injury Medicine; ATTEND Internal Medicine
DX: M62.82 Rhabdomyolysis (principal); N17.0 Acute kidney failure with tubular necrosis; E44.1 Mild protein-calorie malnutrition; I42.9 Cardiomyopathy, unspecified; E87.0 Hyperosmolality and hypernatremia; N17.9 Acute kidney failure, unspecified; D72.829 Elevated white blood cell count, unspecified; I50.9 Heart failure, unspecified; I11.0 Hypertensive heart disease with heart failure; R53.81 Other malaise; R26.9 Unspecified abnormalities of gait and mobility; D63.8 Anemia in other chronic diseases classified elsewhere; R55 Syncope and collapse; G54.6 Phantom limb syndrome with pain; E83.42 Hypomagnesemia; E78.5 Hyperlipidemia, unspecified; I25.10 Atherosclerotic heart disease of native coronary artery without angina pectoris; I73.9 Peripheral vascular disease, unspecified; E03.9 Hypothyroidism, unspecified; F32.9 Major depressive disorder, single episode, unspecified; H54.61 Unqualified visual loss, right eye, normal vision left eye; R10.13 Epigastric pain; L30.8 Other specified dermatitis; W01.0XXA Fall on same level from slipping, tripping and stumbling without subsequent striking against object, initial encounter; R94.6 Abnormal results of thyroid function studies; Y99.8 Other external cause status; Z89.612 Acquired absence of left leg above knee; Z97.0 Presence of artificial eye; Z86.73 Personal history of transient ischemic attack (TIA), and cerebral infarction without residual deficits; Z82.49 Family history of ischemic heart disease and other diseases of the circulatory system; Z68.22 Body mass index [BMI] 22.0-22.9, adult; Z87.891 Personal history of nicotine dependence; Y93.89 Activity, other specified; Y92.89 Other specified places as the place of occurrence of the external cause
CPT/HCPCS: 36415; 76770; 80048; 82306; 82550; 82553; 82607; 82728; 82746; 83540; 83550; 83735; 84100; 84134; 84153; 84443; 84484; 92523; 92610; 93005; 93970; 97110; 97112; 97116; 97150; 97162; 97167; 97530; 97535; C1893; J1650; J7030; G0103